=== PATIENT | female | born 1950 | race Caucasian/White ===

== ENCOUNTER → 2017-08-07 | Outpatient (CLI) | payer MEDICARE, OTHER ==
[~2017-08-07] MED LIST: CENTRUM COMPLE1 EACH; FISH OIL 1,0001 EAC7; HYDROCODON-ACE1 EAC8 PO; KEFLEX500 MG PO; MELOXICAM7.5 MG PO; VITAMIN D400 UNI4 PO
--- NOTE | 2017-08-07 14:17 | EXE ---
[place] [address] STRESS ECHOCARDIOGRAM Name: REESEJenERNESTINA K Room: [facility]#: [id number] Admission: 08/07/17 Attend Phys: Adan Pinon Discharge: Date of : 50 Date of Service: 08/07/17 1416 Report #: [id number] THIS REPORT FOR: //name// APPROVED REPORT Exam: Dobutamine Stress Echo Indication: Chest pain , Dyspnea , Hyperlipidemia Patient Location: Out-Patient Stress Nurse: Danae Raman RN Supervising Physician: Gautam Huerta MD Status: routine Ht: 5 ft 8 in HR: 63 bpm BP: 157/89 mmHg Rhythm: NSR Medical History Cardiac Risk Factors: Hyperlipidemia Procedure The patient underwent a Pharmacological Stress Test using Dobutamine. Blood pressure, heart rate, and EKG were monitored. An Echocardiogram was performed by computer systems technician in four stages in quad fashion. At peak stress, four selected images were obtained and placed side by side with resting images for comparison. Stress Test Details Stress Test: Pharmacological Stress Test using Dobutamine. HR Resting HR: 63 bpm Max Heart Rate (APMHR): 154 bpm Max HR Achieved: 135 bpm Target HR (85% APMHR): 130 bpm % of APMHR: 87 Recovery HR: 94 bpm BP Resting BP: 157/87 mmHg Max BP: 94/53 mmHg Recovery BP: 123/81 mmHg ECG Clinical Reason for Termination: [place] [address] STRESS ECHOCARDIOGRAM Name: ERNESTINA MELENDEZ Room: [facility]#: [id number] Admission: 08/07/17 Attend Phys: Adan Pinon Discharge: Date of : 50 Date of Service: 08/07/17 1416 Report #: [id number] Pre-Stress Echo The resting Echocardiogram showed normal left ventricular contractility with an estimated Ejection Fraction of about 60-65%. Normal wall motion in all segments on baseline images. Post-Stress Echo The stress Echocardiogram showed normal left ventricular contractility with an estimated Ejection Fraction of about >70%. Normal augmentation of wall motion in all segments on post stress images. Clinical No clinical or ECG evidence for ischemia. Conclusion Clinical Response: Non-ischemic Stress ECG Response: Non-ischemic Stress Echo Images: Non-ischemic The left ventricle is normal in size and wall thickness in both the rest and stress images. Other Information Study Quality: Adequate <Conclusion> The left ventricle is normal in size and wall thickness in both the rest and stress images. <ELECTRONICALLY SIGNED> By: Gautam Huerta MD, FACC 08/07/17 1416 1416 1416 Gautam Huerta MD, FACC /INF
== END ==
LOC: M.CRD 10:32
DX: R07.89 Other chest pain (principal); R06.09 Other forms of dyspnea; E78.5 Hyperlipidemia, unspecified

== ENCOUNTER → 2019-02-19 | Outpatient (CLI) | payer MEDICARE, OTHER | LOC: M.RAD 14:01 | DX: N91.2 Amenorrhea, unspecified (principal); I10 Essential (primary) hypertension; M19.90 Unspecified osteoarthritis, unspecified site; Z78.0 Asymptomatic menopausal state ==